=== PATIENT | female | born 1975 | race Caucasian/White ===

== ENCOUNTER 2017-02-16 02:06 | Emergency (ER) | payer MEDICAID ==
[2014-01-10 11:32] VITALS: BMI 42.5
[~2017-02-16 02:06] MED LIST: CELEXA40 MG PO; FERROUS SULFAT325 MG PO; PERCOCET 10/3251 TA1 PO; ZOFRAN8 MG PO
== END 2017-02-16 04:22 | disposition home or self-care (01) ==
LOC: D.ER 02:06
DX: K02.9 Dental caries, unspecified (principal); K08.89 Other specified disorders of teeth and supporting structures; F32.9 Major depressive disorder, single episode, unspecified

== ENCOUNTER 2017-06-18 21:10 | Observation (INO) | payer MEDICAID ==
[~2017-06-18] VITALS: Ht 177.8 cm; Wt 109.5 kg
--- NOTE | ~2017-06-18 | HEMODYNAMI ---
PATIENT:NAS PERES MEDICAL RECORD: [id number] : 73 LOCATION:[address] ADMISSION DATE: 06/18/17 Generatedon:06/20/201715:35 Patient name: NAS PERES Patient #: [id number] SSN: DO B: 1975 Date of study: 06/20/2017 Page: Of Hemodynamic Procedure Report Patient Data Patient Demographics Procedure consent was obtained First Name: NAS Gender: Female Last Name: LARISA : 1975 [facility] Initial: N Age: 42 year(s) Patient #: [id number] Race: Unknown Additional ID: [id number] Contact details [address]: [address] [place] [address] State: [place] City: [place] Zip code: [address] Past Medical History Allergies Allergen Reaction Date Comments Reported Other allergy 06/20/2017 ultram Admission Admission Data Admission Date: 06/18/2017 Admission Time: 23:35 Room #: [facility] Lab Results Lab Result Date: 06/20/2017 Lab Result Time: 0:00 Biochemistry Name Units Result Min Max BUN mg/dl 5 -*(----)-- 7 18 Creatinine mg/dl 0.7 --(*---)-- 0.6 1.3 CBC Name Units Result Min Max Hemoglobin g/dl 9.1 *-(----)-- 13.5 17.5 Procedure Procedure Types Cath Procedure Diagnostic Procedure LHC LH w/Coronaries Miscellaneous Procedures Moderate Sedation up to 15 minutes Peripheral Cath Diagnostic Procedure Cath Peripheral Four Vessel Arteriogram Procedure Description Procedure Date Procedure Date: 06/20/2017 Procedure Start Time: 15:21 Procedure End Time: 15:27 Procedure Staff Name Function Emir Baca MD Performing Physician Annie Palomo RN Nurse Tim Hebert RT Monitor De Francis RT Scrub Procedure Data Cath Procedure Fluoroscopy Diagnostic fluoroscopy Total fluoroscopy Time: 1.5 time: 1.5 min min Diagnostic fluoroscopy Total fluoroscopy dose: 551 dose: 551 mGy mGy Contrast Material Contrast Material Type Amount (ml) Isovue 300 94 Entry Location Entry Primary Successful Side Size Upsize Upsize Entry Closure Succes sful Closure Location (Fr) 1 (Fr) 2 (Fr) Remarks Device Remarks Femoral Right 5 Fr Exoseal artery Diagnostic catheters Device Type Used For End Catheter Placement Cordis 5Fr Pigtail LV Angiography Catheter (MP) Cordis 5Fr JL 4.0 Left Coronary Catheter (MP) Angiography Cordis 5Fr 3DRC Catheter Right Coronary (MP) Angiography Procedure Complications No complications Procedure Medications Medication Administration Route Dosage Oxygen NC 2 l/min Lidocaine 2% added to field 20 Heparin Flush Bag added to field 2 bags (1000units/500ml NS) 0.9% NaCl I.V. 100 ml/hr Versed I.V. 2 mg Fentanyl I.V. 100 mcg Versed I.V. 1 mg Fentanyl I.V. 50 mcg Versed I.V. 1 mg Fentanyl I.V. 50 mcg Hemodynamics Rest HGB: 9.1 (g/dl) Heart Rate: 80 (bpm) Snapshots Pre Cath Intra NCS Post Cath Vital Signs Time Heart Resp SPO2 etCO2 ML1pagc NIBP (mmHg) Rhythm Pain Sedation Rate (ipm) (%) (mmHg) (mmHg) Status Level (bpm) 15:10:18 76 27 100 0 0 146/93(119) NSR 0 (11) 10(A) , No pain 15:14:29 78 17 100 0 0 139/97(114) NSR 0 (11) 10(A) , No pain 15:18:41 82 17 95 0 0 132/88(98) NSR 0 (11) 10(A) , No pain 15:22:51 80 15 96 0 0 120/87(107) NSR 0 (11) 9(A) , No pain 15:26:53 89 16 96 0 0 123/93(108) NSR 0 (11) 10(A) , No pain 15:28:49 81 17 97 0 0 131/87(101) NSR 0 (11) 10(A) , No pain Medications Time Medication Route Dose Verified Delivered Reason Notes Effec tiveness by by 15:15:37 Oxygen NC 2 Emir Buffie used for l/min Phuong Palomo knotting machine operator 15:15:42 Lidocaine 2% added 20ml Emir Buffie used for to vial Phuong Palomo RN procedure field 15:15:47 Heparin Flush added 2 Emir Buffie used for Bag to bags Phuong Palomo RN procedure (1000units/500ml field NS) 15:15:55 0.9% NaCl I.V. 100 Emir Buffie Per ml/hr Phuong Palomo RN physician 15:18:31 Versed I.V. 2 mg Emir Buffie for Phuong Palomo RN sedation 15:18:37 Fentanyl I.V. 100 Emir Buffie for mcg Phuong Palomo RN sedation 15:21:58 Versed I.V. 1 mg Emir Buffie for Phuong Palomo RN sedation 15:22:04 Fentanyl I.V. 50 Emir Buffie for mcg Phuong Palomo RN sedation 15:26:34 Versed I.V. 1 mg Emir Buffie for Phuong Palomo RN sedation 15:26:37 Fentanyl I.V. 50 Emir Buffie for mcg Phuong Palomo RN sedation Procedure Log Time Note 14:29:04 De BAPTISTE(R) sent for patient. Start room use. 14:29:05 Time tracking: Regular hours 14:29:09 Plan of Care:Hemodynamics will remain stable., Cardiac rhythm will remain stable., Comfort level will be maintained., Respiratory function will remain adequate., Patient/ family verbilizes understanding of procedure., Procedure tolerated without complication., Recovers from procedure without complications.. 15:03:11 Patient received from PCU to CCL 1 Alert and oriented. Tansferred to table in Supine position. 15:03:12 Warm blankets applied, and arlene hugger turned on for patient comfort. 15:03:13 Correct patient and procedure confirmed by team. 15:03:15 Signed procedure consent form obtained from patient. 15:03:15 ECG and BP/O2 sat monitors applied to patient. 15:09:06 Vital chart was started 15:13:03 Baseline sample Acquired. 15:13:06 Rhythm: sinus rhythm 15:13:08 Full Disclosure recording started 15:13:50 H&P Date Dictated: 06/20/2017 Within 30 days and on chart.. 15:13:54 H&P Date Dictated: 06/20/2017 Within 30 days and on chart.. 15:13:56 Pre-procedure instructions explained to patient. 15:13:56 Pre-op teaching completed and patient verbalized understanding. 15:13:59 Family in patients room. 15:14:09 Patient NPO since Midnight. 15:14:37 Patient allergic to Other allergyultram 15:14:43 Is the patient allergic to Iodine/contrast media? No. 15:14:47 Is patient on blood thinner?No 15:14:49 Patient diabetic? No. 15:14:50 ----Pre-sedation anethsthesia assessment.---- 15:14:53 Previous problem with sedation/anesthesia? No ? 15:14:55 Snore? Yes 15:14:56 HCG/Urine : not drawn 15:14:57 Sleep apnea? No 15:14:58 pt had abblation and essure for (-)preg 15:14:59 Deviated septum? No 15:15:01 Opens mouth fully? Yes 15:15:02 Sticks out tongue? Yes 15:15:05 Airway obstruction? No ? 15:15:09 Dentures? Yes out 15:15:14 Pre procedure: right dorsailis pedis pulse 1+ Palpable, but thready & weak; easily obliterated 15:15:17 Patient pain scale 0/10 ?. 15:15:23 IV patent on arrival in right hand with 0.9% NaCl at 10ml/hr. 15:15:37 Oxygen 2 l/min NC was administered by Annie Palomo RN; used for procedure; 15:15:42 Lidocaine 2% 20ml vial added to field was administered by Annie Palomo RN; used for procedure; 15:15:47 Heparin Flush Bag (1000units/500ml NS) 2 bags added to field was administered by Annie Palomo RN; used for procedure; 15:15:55 0.9% NaCl 100 ml/hr I.V. was administered by Annie Palomo RN; Per physician; 15:17:36 Lab Result : BUN 5 mg/dl 15:17:36 Lab Result : Creatinine 0.7 mg/dl 15:17:36 Lab Result : Hemoglobin 9.1 g/dl 15:17:40 Lab results completed and on chart. 15:17:44 Right groin area was prepped with chlora-prep and draped in sterile fashion 15:17:46 Alarms reviewed by R. N. 15:17:47 Sharps counted by scrub and verified by R.N. 15:17:48 --------ALL STOP TIME OUT------ 15:17:48 Final Timeout: patient, procedure, and site verified with staff and physician. All members of the team are in agreement. 15:17:52 Right groin site verified by team. 15:17:54 Physical assessment completed. ASA score P 2 - A patient with mild systemic disease as per Emir Baca MD. 15:17:58 Sedation plan: IV Moderate Sedation Versed, Fentanyl 15:18:31 Versed 2 mg I.V. was administered by Annie Palomo RN; for sedation; 15:18:37 Fentanyl 100 mcg I.V. was administered by Annie Palomo RN; for sedation; 15:21:10 Use device set Femoral Dx 15:21:11 Acist Syringe opened to sterile field. 15:21:12 Bag Decanter opened to sterile field. 15:21:12 Medline Cath Pack opened to sterile field. 15:21:12 Terumo 5Fr Heavener Sheath opened to sterile field. 15:21:13 St Kenny 260cm J .035 wire opened to sterile field. 15:21:14 Acist Hand Control opened to sterile field. 15:21:14 Acist Manifold opened to sterile field. 15:21:15 Diagnostic Infinity 5Fr Multipack catheter opened to sterile field. 15:21:15 Tegaderm 4 x 4 opened to sterile field. 15:21:18 Procedure started. 15:21:39 Local anesthetic to right femoral artery with Lidocaine 2% by Emir Baca MD.INITIAL ACCESS ONLY 15:21:45 A 5 Fr sheath was inserted into the Right Femoral artery 15:21:53 A Cordis 5Fr Pigtail Catheter (MP) was advanced over the wire and used for LV Angiography. 15::58 Versed 1 mg I.V. was administered by Annie Palomo RN; for sedation; 15::58 LV angiography performed. 15:22:04 Fentanyl 50 mcg I.V. was administered by Annie Palomo RN; for sedation; 15:22:04 EF : 50 % 15:22:05 Catheter removed. 15:22:10 A Cordis 5Fr JL 4.0 Catheter (MP) was advanced over the wire and used for Left Coronary Angiography. 15:22:13 LCA angiography performed. 15:23:01 Catheter removed. 15:23:17 A Cordis 5Fr 3DRC Catheter (MP) was advanced over the wire and used for Right Coronary Angiography. 15:23:33 RCA angiography performed. 15:24:01 Right carotid angiography performed. 15:24:03 Right subclavian angiography performed 15:24:04 Left carotid angiography performed. 15:24:09 Left subclavian angiography performed 15:25:10 Catheter removed. 15:25:16 Contrast amount:Isovue 300 94ml. 15:25:22 Sheath removed intact; hemostasis achieved with Exoseal to the Right Femoral artery. 15:25:29 Cordis 5Fr Exoseal opened to sterile field. 15:25:32 Procedure ended.(Physican Out) 15::20 Fluoroscopy time 01.50 minutes. 15::24 Flurop Dose total: 551 15::24 Fluoroscopy dose: 551 mGy 15:: Sharps counted by scrub and verified by R.N. 15::27 Insertion/operative site no bleeding no hematoma. 15::29 Post-op/insertion site Right Femoral artery dressed using a 4 x 4 and Tegaderm. 15:26:33 Post right femoral artery:stable 15::34 Versed 1 mg I.V. was administered by Annie aPlomo RN; for sedation; 15::34 Post Procedure Pulses reassessed and unchanged 15:26:36 Post procedure: right dorsailis pedis pulse 1+ Palpable, but thready & weak; easily obliterated. 15:26:37 Fentanyl 50 mcg I.V. was administered by Annie Palomo RN; for sedation; 15::39 Post procedure rhythm: sinus rhythm 15::41 Post procedure instruction explained to patient.Patient verbalizes understanding. 15:26:57 Procedure and supply charges have been captured, reviewed, submitted and are correct. 15:27:01 Procedure Complication : No complications 15::04 Vital chart was stopped 15::04 See physician's report for complete and final results. 15:27:06 Report given to PCU. 15:27:10 Patient transfered to PCU with Bed. 15:27:12 Procedure ended. 15:27:12 Full Disclosure recording stopped 15:27:15 End room use (Document Last) Device Usage Item Name Manufacture Quantity Catalog Hospital Part Current Minimal Lo t# / Number Charge Number Stock Stock Serial# Code Acist Acist 1 52220 [id number] 237791 [id number] 20 Syringe Medical Systems Inc Bag Microtek 1 2002S 868961 62638 889520 5 Decanter Medical Inc. Medline Cardinal 1 [id number] 687274 16294 533710 5 Cath Pack Health Terumo 5Fr Terumo 1 [id number] 184117 690610 188023 [address] St Kenny 1 [id number] 673240 989828 672887 30 260cm J .035 wire Acist Hand Acist 1 21102 252661 904071 365516 5 Control Medical Systems Inc Acist Acist 1 13647 370518 706996 826598 5 Manifold Medical Systems Inc Diagnostic Cardinal 1 [id number] 486446 25611 424112 30 Infinity Health 5Fr Multipack catheter Tegaderm 4 3M 1 1626W 982133 698841 478668 5 x 4 Cordis 5Fr Cardinal 1 794113 5 Pigtail Health Catheter (MP) Cordis 5Fr Cardinal 1 087093 5 JL 4.0 Health Catheter (MP) Cordis 5Fr Cardinal 1 440338 5 3DRC Health Catheter (MP) Cordis 5Fr Cardinal 1 EX500 024492 212757 772381 10 Pubster Signature Audit [place] Stage Time Signature Unsigned Intra-Procedure 06/20/2017 Tim Hebert 3:35:00 PM RT(R) Signatures Monitor : Tim Hebert RT Signature : Date : Time : [facility] [address] [place] [address]
[2017-06-18 22:02] LABS: BASOPHILS 0.3 % (0-2); EOSINOPHILS 2.6 % (0-7); HEMATOCRIT 30.3 % (36.0-48.0); HEMOGLOBIN 9.6 g/dL (12-16); IMMATURE GRANULOCYTES 0.1 % (0-5); LYMPHOCYTES 47.4 % (15-50); MCH 24.1 pg (26.0-34.0); MCHC 31.7 g/dL (31.0-37.0); MCV 76.1 fL (80.0-100.0); MEAN PLATELET VOLUME 9.2 fL (7.4-10.4); MONOCYTES 4.1 % (2-11); NEUTROPHILS 45.5 % (40-80); RBC 3.98 10x6/uL (4.00-5.40); RDW 20.2 % (11.5-14.5)
[2017-06-18 22:07] LABS: ALBUMIN 3.3 g/dL (3.4-5.0); ALKALINE PHOSPHATASE 49 U/L (46-116); ALT (SGPT) 18 U/L (10-68); BILIRUBIN - TOTAL 0.65 mg/dL (0.2-1.3); CALC OSMOLALITY 275 mosm/kg (275-300); CALCIUM 8.2 mg/dL (8.5-10.1); CARBON DIOXIDE 23.2 mmol/L (21.0-32.0); CHLORIDE - SERUM 100 mmol/L (98-107); CREATININE - SERUM 0.6 mg/dL (0.6-1.3); GLUCOSE 99 mg/dL (74-106); POTASSIUM - SERUM 3.2 mmol/L (3.5-5.1); PROTEIN - SERUM 6.8 g/dL (6.4-8.2); SODIUM 139 mmol/L (136-145); UREA NITROGEN 7 mg/dL (7-18); eGFR NON AFRICAN AMERICAN > 90 mL/min (90-120)
[2017-06-18 22:18] LABS: CREATINE KINASE 226 UL (21-215)
[2017-06-18 22:22] LABS: PLATELET COUNT 152 10x3/uL (130-400)
[2017-06-18 22:25] LABS: TROPONIN-I < 0.017 ng/mL (0.000-0.060)
--- NOTE | 2017-06-19 | NUR ---
ADMIT FROM ER. DX CHEST PAIN. ASSESSMENT PER FLOWSHEET. NO CO AT TIME.
[2017-06-19 00:08] VITALS: BP 136/82; Ht 177.8 cm; Wt 109.5 kg
[2017-06-19] MEDS ORDERED: NEURONTIN 300300 MG PO (00:20)
--- NOTE | 2017-06-19 00:34 | NUR ---
CO PAIN 7/10 MORPHINE GIVEN.
[2017-06-19 01:10] LABS: CREATINE KINASE 186 UL (21-215); TROPONIN-I < 0.017 ng/mL (0.000-0.060)
--- NOTE | 2017-06-19 02:15 | NUR ---
C/O NAUSEA PHENERGAN 25MG GIVEN LGM.
--- NOTE | 2017-06-19 03:23 | NUR ---
REQUESTING MORPHINE NOW. STATES HAVING CHEST PAIN.
[2017-06-19 04:20] VITALS: BP 112/69
--- NOTE | 2017-06-19 05:07 | NUR ---
SLEEPING NO DISTRESS NOTED. SR UP X 2.
--- NOTE | 2017-06-19 05:57 | NUR ---
VOICES NO CO AT TIME. AWAKE LAYING ON L SIDE.
[2017-06-19 07:13] LABS: CREATINE KINASE 165 UL (21-215)
[2017-06-19 07:18] LABS: TROPONIN-I < 0.017 ng/mL (0.000-0.060)
--- NOTE | 2017-06-19 07:35 | NUR ---
ASSESSMENT DONE. DENIES NEEDS.
[2017-06-19 08:17] VITALS: BP 123/72
--- NOTE | 2017-06-19 08:40 | NUR ---
RESTS WITH EYES CLOSED. RESP UL ON . CALL LIGHT IN REACH. WILL MONITOR NEEDS.
[2017-06-19 11:22] VITALS: BP 126/64
[2017-06-19 14:18] LABS: CKMB 0.7 U/L (0.0-3.6); CREATINE KINASE 132 UL (21-215)
[2017-06-19 14:19] LABS: TROPONIN-I < 0.017 ng/mL (0.000-0.060)
[2017-06-19 16:03] VITALS: BP 124/78
--- NOTE | 2017-06-19 19:47 | NUR ---
RESUMED CARE OF PT, LYING IN BED RESPIRATIONS EVEN AND UNLABORED ON ROOM AIR. [address] ON TELEMETRY. RIGTH HAND SALINE LOCKED. MORPHINE 5MG IVP FOR PAIN 6:10. CALL LIGHT IN REACH. WILL CONTINUE TO MONITOR. SEE NURSE ASSESSMENT.
[2017-06-19 20:00] VITALS: BP 125/78
[2017-06-20] VITALS: BP 114/75
--- NOTE | 2017-06-20 06:36 | NUR ---
NO CHANGES FROM PREVIOUS ASSESSMENT, CALL LIGHT IN REACH. REMAINS NPO.
[2017-06-20 07:54] VITALS: BP 141/85
[2017-06-20 09:20] LABS: CALC OSMOLALITY 275 mosm/kg (275-300); CALCIUM 8.5 mg/dL (8.5-10.1); CARBON DIOXIDE 28.8 mmol/L (21.0-32.0); CHLORIDE - SERUM 101 mmol/L (98-107); CREATININE - SERUM 0.7 mg/dL (0.6-1.3); GLUCOSE 112 mg/dL (74-106); POTASSIUM - SERUM 3.3 mmol/L (3.5-5.1); SODIUM 139 mmol/L (136-145); eGFR NON AFRICAN AMERICAN > 90 mL/min (90-120)
--- NOTE | 2017-06-20 09:22 | NUR ---
NPO FOR [facility]. CONSENTS SIGNED. WILL CONT. PLAN OF CARE.
[2017-06-20 09:24] LABS: UREA NITROGEN 5 mg/dL (7-18)
[2017-06-20 10:02] LABS: BASOPHILS 0.2 % (0-2); EOSINOPHILS 2.7 % (0-7); HEMATOCRIT 29.5 % (36.0-48.0); HEMOGLOBIN 9.1 g/dL (12-16); IMMATURE GRANULOCYTES 0.6 % (0-5); LYMPHOCYTES 48.4 % (15-50); MCH 24.4 pg (26.0-34.0); MCHC 30.8 g/dL (31.0-37.0); MCV 79.1 fL (80.0-100.0); MEAN PLATELET VOLUME 9.7 fL (7.4-10.4); MONOCYTES 5.4 % (2-11); NEUTROPHILS 42.7 % (40-80); PLATELET COUNT 105 10x3/uL (130-400); RBC 3.73 10x6/uL (4.00-5.40); RDW 20.1 % (11.5-14.5); WBC 5.1 10x3/uL (4.8-10.8)
[2017-06-20 11:37] VITALS: BP 102/66
--- NOTE | 2017-06-20 14:44 | NUR ---
PRE-OPS GIVEN. TO GATE MANAGER BY BED.
--- NOTE | 2017-06-20 15:50 | NUR ---
BACK FROM DEBT COLLECTOR. VS WNL. RIGHT GROIN STABLE WITHOUT BLEEDING OR HEMATOMA NOTED. WILL MONITOR.
--- NOTE | 2017-06-20 17:29 | NUR ---
BED REST UP. GROIN STABLE.
--- NOTE | 2017-06-20 17:57 | NUR ---
IV AND TELEMETRY DCD. DC PLANS GIVEN. UNDERSTANDING VOICED. ESCOTED TO CAR BY W/C.
--- NOTE | 2017-06-21 12:31 | OP ---
PATIENT NAME: NAS PERES MEDICAL RECORD: [id number] :73 LOCATION:D.M2 [address].2122 ADMISSION DATE:06/18/17 SURGEON: MISAEL KEITA MD DATE OF OPERATION: 06/20/2017 PROCEDURES: 1. Left heart catheterization. 2. Selective coronary angiography. 3. Left ventriculogram. 4. Four-vessel carotid and vertebral angiography INDICATION: Syncope. PROCEDURE IN DETAIL: After informed consent was obtained and after detailed explanation of risks, benefits as well as alternative therapies, the patient elected to proceed with angiogram and heart catheterization. The right femoral area was prepped and draped in normal sterile fashion. The right femoral artery was cannulated via modified Seldinger technique with placement of 5-Tajik sheath. All catheters exchanged through this sheath. FINDINGS: There was a subselection of each subclavian as well as the left carotid. RIGHT SIDE: The common internal and external carotids have mild plaquing, none greater than 10%. No flow-limiting stenosis. Vertebral arteries devoid of disease. LEFT SYSTEM: The common internal and external carotids as well as vertebral have no significant disease. Left ventriculogram was performed in standard 30-degree LIM view, reveals good cardiac wall motion throughout all segments. Overall ejection fraction 55%. SELECTIVE CORONARY ANGIOGRAPHY: Left main, left anterior descending, left circumflex and right coronary artery are all smooth-walled vessels with no angiographic evidence of coronary artery disease. OVERALL IMPRESSION: 1. No angiographic evidence of coronary artery disease. 2. Normal left heart pressures. 3. Normal left ventricular systolic function. Chest pain is noncardiac in etiology. The syncope is not due to carotid vascular insufficiency. No further cardiovascular workup needs to be ascertained. TRANSINT:[id number] Voice Confirmation ID: [id number] DOCUMENT ID: [id number] MISAEL KEITA MD at 1231 CC: [id number] DICTATION DATE: 06/20/17 1530 EXTENSION SPECIALIST: 06/20/17 2302 DIS IN 06/20/17 [facility] [address] [id number]
--- NOTE | 2017-06-21 12:31 | DS ---
PATIENT:NAS PERES :73 MEDICAL RECORD: [id number] DISCHARGE SUMMARY ADMISSION DATE: 06/18/17 DISCHARGE DATE: 06/20/17 DISCHARGE DIAGNOSES: 1. Chest pain. 2. Anemia. 3. Gastroesophageal reflux disease. HOSPITAL COURSE: Mrs. Peres presents with chest pain. Cardiac catheterization was normal. She has a significant anemia that is most likely iron deficiency anemia and GERD, ____ having GI blood loss. From a cardiac standpoint, no further workup needs to be ascertained. She should seek attention to her primary care doctor for the anemia and the GERD. TRANSINT:[id number] Voice Confirmation ID: [id number] DOCUMENT ID: [id number] MISAEL KEITA MD at 1231 CC: [id number] DICTATION DATE: 06/20/17 1528 ELECTROMATIC TYPIST: 06/21/17 0413 DIS IN 06/20/17 [id number] [place] [address]
== END 2017-06-20 18:07 | disposition home or self-care (01) ==
LOC: D.ER 21:10 → D.M2 23:35 → OBSVTIME 23:35 → D.M2 23:35
PROVIDERS: Emergency Medicine; ADMIT Internal Medicine Interventional Cardiology
DX: R07.89 Other chest pain (principal); I10 Essential (primary) hypertension; D64.9 Anemia, unspecified; K21.9 Gastro-esophageal reflux disease without esophagitis; E03.9 Hypothyroidism, unspecified; F41.9 Anxiety disorder, unspecified; F32.9 Major depressive disorder, single episode, unspecified; R55 Syncope and collapse

== ENCOUNTER 2017-06-26 19:49 | Emergency (ER) | payer MEDICAID ==
[2017-06-19 00:08] VITALS: BMI 34.6
[~2017-06-26 19:49] MED LIST changes: +NEURONTIN 300300 MG PO
[2017-06-26 20:20] LABS: BASOPHILS 0 % (0-2); EOSINOPHILS 0.5 % (0-7); HEMATOCRIT 28.1 % (36.0-48.0); HEMOGLOBIN 8.8 g/dL (12-16); IMMATURE GRANULOCYTES 0.2 % (0-5); LYMPHOCYTES 37.7 % (15-50); MCH 24.9 pg (26.0-34.0); MCHC 31.3 g/dL (31.0-37.0); MCV 79.4 fL (80.0-100.0); MEAN PLATELET VOLUME 8.3 fL (7.4-10.4); MONOCYTES 10.5 % (2-11); NEUTROPHILS 51.1 % (40-80); RBC 3.54 10x6/uL (4.00-5.40); RDW 22.4 % (11.5-14.5); WBC 4.3 10x3/uL (4.8-10.8)
[2017-06-26 20:22] LABS: PLATELET COUNT 294 10x3/uL (130-400)
[2017-06-26 20:34] LABS: ALBUMIN 2.9 g/dL (3.4-5.0); ALKALINE PHOSPHATASE 41 U/L (46-116); ALT (SGPT) 26 U/L (10-68); BILIRUBIN - TOTAL 0.54 mg/dL (0.2-1.3); CALC OSMOLALITY 288 mosm/kg (275-300); CALCIUM 7.9 mg/dL (8.5-10.1); CARBON DIOXIDE 27.5 mmol/L (21.0-32.0); CHLORIDE - SERUM 107 mmol/L (98-107); CREATININE - SERUM 0.6 mg/dL (0.6-1.3); GLUCOSE 115 mg/dL (74-106); POTASSIUM - SERUM 3.2 mmol/L (3.5-5.1); PROTEIN - SERUM 6.1 g/dL (6.4-8.2); SODIUM 145 mmol/L (136-145); UREA NITROGEN 9 mg/dL (7-18); eGFR NON AFRICAN AMERICAN > 90 mL/min (90-120)
[2017-06-26 20:46] LABS: CHOL - HDL RATIO 1.4 ratio (2.3-4.1); CHOLESTEROL, TOTAL 140 mg/dL (0-200); CKMB 0.6 U/L (0.0-3.6); CREATINE KINASE 121 UL (21-215); HDL CHOLESTEROL 99 mg/dL (32-96); LDL CHOLESTEROL 1 mg/dL (0-100); TRIGLYCERIDE 200 mg/dL (30-200)
[2017-06-26 20:46] LABS: APPEARANCE HAZY (CLEAR); COLOR DK YELLOW (YELLOW); LEUKOCYTE ESTERASE NEGATIVE (NEGATIVE); NITRITE POSITIVE (NEGATIVE); SPECIFIC GRAVITY 1.015 (1.005-1.020)
[2017-06-26 20:47] LABS: TROPONIN-I < 0.017 ng/mL (0.000-0.060)
[2017-06-26 20:47] LABS: BILIRUBIN NEGATIVE (NEGATIVE); GLUCOSE NEGATIVE (NEGATIVE); KETONE NEGATIVE (NEGATIVE); PROTEIN TRACE mg/dL (NEGATIVE); UROBILINOGEN NORMAL (NORMAL)
[2017-06-26 20:49] LABS: BACTERIA MODERATE /hpf (NONE SEEN)
[2017-06-26 20:50] LABS: EPITHELIAL CELLS 0-5 /hpf (0-5); RED CELLS - URINE NONE SEEN /hpf (0-5); WHITE CELLS - URINE 0-5 /hpf (0-5)
[2017-06-26 20:51] LABS: CALCIUM OXALATE CRYSTALS 25-50 /hpf (NONE SEEN)
[2017-06-26 20:52] LABS: UDS - AMPHET NEGATIVE QUAL (NEGATIVE); UDS - BARB NEGATIVE QUAL (NEGATIVE); UDS - BENZO NEGATIVE QUAL (NEGATIVE); UDS - COCAINE NEGATIVE QUAL (NEGATIVE); UDS - METH NEGATIVE QUAL (NEGATIVE); UDS - OPIATE NEGATIVE QUAL (NEGATIVE); UDS - PCP NEGATIVE QUAL (NEGATIVE); UDS - THC NEGATIVE QUAL (NEGATIVE)
== END 2017-06-26 21:20 | disposition home or self-care (01) ==
LOC: D.ER 19:49
PROVIDERS: Family Medicine; Nurse Practitioner Acute Care
DX: N39.0 Urinary tract infection, site not specified (principal); M94.0 Chondrocostal junction syndrome [Tietze]; F32.9 Major depressive disorder, single episode, unspecified

== ENCOUNTER 2017-07-03 22:06 | Inpatient (IN) | payer MEDICAID ==
[~2017-07-03] VITALS: Ht 175.3 cm; Wt 57.7 kg
[2017-07-03 22:54] LABS: BASOPHILS 0.6 % (0-2); EOSINOPHILS 0.1 % (0-7); HEMATOCRIT 34.2 % (36.0-48.0); HEMOGLOBIN 10.5 g/dL (12-16); IMMATURE GRANULOCYTES 0.2 % (0-5); LYMPHOCYTES 9.7 % (15-50); MCH 24.2 pg (26.0-34.0); MCHC 30.7 g/dL (31.0-37.0); MEAN PLATELET VOLUME 8.7 fL (7.4-10.4); MONOCYTES 4.4 % (2-11); PLATELET COUNT 393 10x3/uL (130-400); RBC 4.33 10x6/uL (4.00-5.40); RDW 22.1 % (11.5-14.5); WBC 8.3 10x3/uL (4.8-10.8)
[2017-07-03 23:09] LABS: ALBUMIN 3.4 g/dL (3.4-5.0); ALKALINE PHOSPHATASE 56 U/L (46-116); ALT (SGPT) 28 U/L (10-68); BILIRUBIN - TOTAL 1.38 mg/dL (0.2-1.3); CALC OSMOLALITY 271 mosm/kg (275-300); CALCIUM 7.8 mg/dL (8.5-10.1); CARBON DIOXIDE 23.2 mmol/L (21.0-32.0); CHLORIDE - SERUM 101 mmol/L (98-107); CREATININE - SERUM 0.7 mg/dL (0.6-1.3); GLUCOSE 92 mg/dL (74-106); POTASSIUM - SERUM 3.6 mmol/L (3.5-5.1); PROTEIN - SERUM 6.9 g/dL (6.4-8.2); SODIUM 137 mmol/L (136-145); UREA NITROGEN 8 mg/dL (7-18); eGFR NON AFRICAN AMERICAN > 90 mL/min (90-120)
[2017-07-03 23:23] LABS: APPEARANCE CLOUDY (CLEAR); BACTERIA MANY /hpf (NONE SEEN); BILIRUBIN NEGATIVE (NEGATIVE); COLOR YELLOW (YELLOW); EPITHELIAL CELLS 0-5 /hpf (0-5); GLUCOSE NEGATIVE (NEGATIVE); KETONE LARGE mg/dL (NEGATIVE); LEUKOCYTE ESTERASE 1+ (NEGATIVE); MUCUS >1+ /lpf (NONE SEEN); NITRITE POSITIVE (NEGATIVE); PROTEIN TRACE mg/dL (NEGATIVE); RED CELLS - URINE NONE SEEN /hpf (0-5); UDS - AMPHET NEGATIVE QUAL (NEGATIVE); UDS - BARB NEGATIVE QUAL (NEGATIVE); UDS - BENZO NEGATIVE QUAL (NEGATIVE); UDS - COCAINE NEGATIVE QUAL (NEGATIVE); UDS - METH NEGATIVE QUAL (NEGATIVE); UDS - OPIATE NEGATIVE QUAL (NEGATIVE); UDS - PCP NEGATIVE QUAL (NEGATIVE); UDS - THC NEGATIVE QUAL (NEGATIVE); UROBILINOGEN NORMAL (NORMAL)
[2017-07-03 23:24] LABS: CHOL - HDL RATIO 1.3 ratio (2.3-4.1); CHOLESTEROL, TOTAL 184 mg/dL (0-200); CKMB 0.7 U/L (0.0-3.6); CREATINE KINASE 95 UL (21-215); HDL CHOLESTEROL 140 mg/dL (32-96); LDL CHOLESTEROL 27 mg/dL (0-100); LDL-HDL RATIO 0.2 ratio (1.5-3.5); TRIGLYCERIDE 85 mg/dL (30-200)
[2017-07-03 23:25] LABS: TROPONIN-I < 0.017 ng/mL (0.000-0.060)
--- NOTE | 2017-07-04 01:26 | NUR ---
RECIEVED REPORT FROM TOÑA BONDS.
[2017-07-04 02:26] VITALS: BP 119/76; Ht 175.3 cm; Wt 57.7 kg
--- NOTE | 2017-07-04 02:34 | NUR ---
PATIENT STATED SHE IS HURTING VERY BAD AND NEEDS SOMETHING FOR PAIN. CALLED THE ER, SPOKE WITH TOÑA BONDS ASKED HER IF SHE CAN ASK THE PHYSICIAN FOR SOMETHING FOR PAIN, SHE SAID SHE WILL.
--- NOTE | 2017-07-04 03:37 | NUR ---
GRACIA DAMON SPOKE WITH TOÑA BONDS HE SAID SHE TOLD HIM THE ER DOCTOR SAID HE IS NOT ORDERING PAIN MEDICATION. MARISOL TOLD THE PATIENT. THE PATIENT SAID SHE IS GOING TO TRY TO GO TO SLEEP AND REQUESTED THE LIGHT OFF, HE TURNED OFF THE LIGHT FOR HER.
[2017-07-04 04:00] VITALS: BP 138/83
--- NOTE | 2017-07-04 07:27 | NUR ---
LYING IN BED,WITHOUT DISTRESS.DENIES NEEDS.CALL LIGHT IN REACH
[2017-07-04 08:54] VITALS: BP 132/90
[2017-07-04 09:30] LABS: BASOPHILS 0.4 % (0-2); EOSINOPHILS 0 % (0-7); HEMATOCRIT 30.4 % (36.0-48.0); HEMOGLOBIN 9.5 g/dL (12-16); IMMATURE GRANULOCYTES 0.1 % (0-5); LYMPHOCYTES 9.6 % (15-50); MCH 24.6 pg (26.0-34.0); MCHC 31.3 g/dL (31.0-37.0); MCV 78.8 fL (80.0-100.0); MEAN PLATELET VOLUME 8.7 fL (7.4-10.4); MONOCYTES 5.3 % (2-11); NEUTROPHILS 84.6 % (40-80); PLATELET COUNT 384 10x3/uL (130-400); RBC 3.86 10x6/uL (4.00-5.40); WBC 7.7 10x3/uL (4.8-10.8)
[2017-07-04 10:35] LABS: AMYLASE - SERUM 49 U/L (25-115); LIPASE 374 U/L (73-393)
[2017-07-04 13:03] VITALS: BP 133/90
[2017-07-04 15:51] LABS: CKMB 1.3 U/L (0.0-3.6); CREATINE KINASE 137 UL (21-215)
[2017-07-04 15:58] LABS: TROPONIN-I < 0.017 ng/mL (0.000-0.060)
[2017-07-04 19:54] LABS: CKMB 1.2 U/L (0.0-3.6); CREATINE KINASE 139 UL (21-215)
[2017-07-04 20:00] VITALS: BP 129/70
[2017-07-04 20:00] LABS: TROPONIN-I < 0.017 ng/mL (0.000-0.060)
[2017-07-04 20:28] LABS: HEMATOCRIT 29.6 % (36.0-48.0); HEMOGLOBIN 9.2 g/dL (12-16)
[2017-07-05] VITALS (7 sets, daily range): BP systolic 116–140; BP diastolic 74–87
--- NOTE | 2017-07-05 01:09 | NUR ---
PATIENT WAS ASLEEP WHEN I ENTERED HER ROOM TO GIVE HER THE PROTONIX, AND THE RN RECRUITMENT CAME IN TO DO HER V/S. PATIENT WOKE UP. PATIENT ASKED "WHEN CAN I HAVE MY NEXT MEDICINE TO HELP ME SLEEP?" I STATED "I DO NOT HAVE AN ORDER FOR MEDICATION TO HELP YOU SLEEP. I HAVE AN ORDER FOR ATIVAN TO HELP WITH PREVENTING DT'S AND AN ORDER FOR MORPHINE FOR PAIN. I KNOW IT MAKES YOU SLEEPY BUT THAT IS NOT THE INTENDED PURPOSE OF GIVING YOU THE MEDICATION." SHE STATED "I WAS SHAKING REALLY BAD EARLIER AND I AM NOT NOW THAT MEDICINE IS REALLY HELPING AND IT IS HELPING ME TO GET SOME SLEEP." I STATED "I KNOW YOU ARE WANTING TO GET SOME SLEEP BECAUSE YOU HAVE NOT HAD MUCH REST THE PAST FEW DAYS BUT I AM NOT COMFORTABLE GIVING YOU ANY MORE ATIVAN AT THIS TIME. YOU ARE NOT HAVING ANY TREMORS OR ANYTHING RIGHT NOW, YOU ARE REALLY GROGGY. I DO NOT WANT TO OVER SEDATE YOU. IF YOU GET OVER SEDATED IT CAN MAKE YOU STOP BREATHING." SHE STATED "AT THIS POINT I AM NOT GOING TO STOP BREATHING BUT WHATEVER, I WILL TRY TO GO BACK TO SLEEP."
[2017-07-05 02:11] LABS: CKMB 0.7 U/L (0.0-3.6); CREATINE KINASE 103 UL (21-215)
[2017-07-05 02:12] LABS: TROPONIN-I < 0.017 ng/mL (0.000-0.060)
--- NOTE | 2017-07-05 02:35 | NUR ---
PATIENT PUSHED CALL LIGHT. ANSWERED CALL LIGHT. PATIENT'S MECHANICAL SYSTEMS ENGINEER IS ON THE BEDSIDE TABLE. PATIENT STATED "I CANNOT DEAL WITH THAT THING RIGHT NOW. IT IS GETTING ALL TWISTED UP. AND MY CHEST AND MY FACE AND MY ARM IS HURTING AGAIN. I WAS WONDERING WHAT I CAN GET?" PATIENT IS HAVING TREMORS. ADMINISTERED ATIVAN.
[2017-07-05 05:29] LABS: BASOPHILS 0.2 % (0-2); HEMATOCRIT 26.4 % (36.0-48.0); HEMOGLOBIN 8.1 g/dL (12-16); IMMATURE GRANULOCYTES 0.2 % (0-5); LYMPHOCYTES 31.6 % (15-50); MCH 24.3 pg (26.0-34.0); MCHC 30.7 g/dL (31.0-37.0); MCV 79.3 fL (80.0-100.0); MEAN PLATELET VOLUME 8.7 fL (7.4-10.4); RBC 3.33 10x6/uL (4.00-5.40); RDW 21.6 % (11.5-14.5)
[2017-07-05 05:30] LABS: PLATELET COUNT 265 10x3/uL (130-400)
[2017-07-05 05:42] LABS: INR 1.02 (0.85-1.17); PROTIME 13.2 SECONDS (11.6-15.0)
[2017-07-05 05:53] LABS: ALBUMIN 2.9 g/dL (3.4-5.0); ALKALINE PHOSPHATASE 56 U/L (46-116); ALT (SGPT) 20 U/L (10-68); AMYLASE - SERUM 33 U/L (25-115); CALC OSMOLALITY 274 mosm/kg (275-300); CALCIUM 8.1 mg/dL (8.5-10.1); CARBON DIOXIDE 31.4 mmol/L (21.0-32.0); CHLORIDE - SERUM 101 mmol/L (98-107); CREATININE - SERUM 0.7 mg/dL (0.6-1.3); GLUCOSE 101 mg/dL (74-106); LIPASE 296 U/L (73-393); PRE-ALBUMIN 41.7 mg/dL (18.0-35.7); PROTEIN - SERUM 5.6 g/dL (6.4-8.2); SODIUM 139 mmol/L (136-145); UREA NITROGEN 5 mg/dL (7-18); eGFR NON AFRICAN AMERICAN > 90 mL/min (90-120)
--- NOTE | 2017-07-05 07:50 | NUR ---
ASSESSMENT COMPLETE. IV TO L HAND PATENT. NPO FOR EGD TODAY. UP AD DELILAH. METAL RECLAMATION KETTLE TENDER SHOWING SR 75 PER TECH. DENIES ANY NEEDS AT PRESENT.
[2017-07-05 12:34] LABS: HCG URINE NEGATIVE (NEGATIVE)
--- NOTE | 2017-07-05 12:53 | NUR ---
OFF FLOOR TO GI LAB VIA STRETCHER.
[2017-07-05 12:56] LABS: HEMATOCRIT 28.2 % (36.0-48.0); HEMOGLOBIN 8.7 g/dL (12-16)
--- NOTE | 2017-07-05 13:55 | NUR ---
RETURNED TO ROOM FROM GI LAB. VSS. FAMILY AT BEDSIDE.
[2017-07-05 21:50] LABS: HEMOGLOBIN 8.4 g/dL (12-16)
--- NOTE | 2017-07-05 22:50 | NUR ---
PATIENT AMBULATING IN THE GARCÍA.
[2017-07-06] VITALS (10 sets, daily range): BP systolic 99–138; BP diastolic 65–90
--- NOTE | 2017-07-06 03:20 | NUR ---
GAVE MORPHINE 2 MG IVP AND ATIVAN 2 MG IVP PER PT REQUEST FOR PAIN AND ANXIETY, PER PRN ORDERS. WILL MONITOR FOR EFFECTIVENESS. CALL LIGHT WITHIN REACH. FAMILY MEMBER IS AT BEDSIDE.
--- NOTE | 2017-07-06 04:00 | NUR ---
RESTING QUIETLY WITH EYES CLOSED. NO SIGNS OF DISTRESS NOTED.
[2017-07-06 05:20] LABS: BASOPHILS 0.3 % (0-2); EOSINOPHILS 2.3 % (0-7); HEMOGLOBIN 7.7 g/dL (12-16); IMMATURE GRANULOCYTES 0.5 % (0-5); LYMPHOCYTES 30.5 % (15-50); MCH 24.7 pg (26.0-34.0); MCHC 30.8 g/dL (31.0-37.0); MCV 80.1 fL (80.0-100.0); MEAN PLATELET VOLUME 8.9 fL (7.4-10.4); MONOCYTES 7.1 % (2-11); NEUTROPHILS 59.3 % (40-80); RBC 3.12 10x6/uL (4.00-5.40); RDW 21.7 % (11.5-14.5); WBC 3.9 10x3/uL (4.8-10.8)
[2017-07-06 05:24] LABS: PLATELET COUNT 206 10x3/uL (130-400)
[2017-07-06 05:47] LABS: ALBUMIN 2.8 g/dL (3.4-5.0); ALKALINE PHOSPHATASE 51 U/L (46-116); ALT (SGPT) 20 U/L (10-68); AMYLASE - SERUM 32 U/L (25-115); CALC OSMOLALITY 279 mosm/kg (275-300); CALCIUM 8.2 mg/dL (8.5-10.1); CARBON DIOXIDE 30.1 mmol/L (21.0-32.0); CHLORIDE - SERUM 106 mmol/L (98-107); CREATININE - SERUM 0.7 mg/dL (0.6-1.3); GLUCOSE 100 mg/dL (74-106); LIPASE 224 U/L (73-393); POTASSIUM - SERUM 3.2 mmol/L (3.5-5.1); PROTEIN - SERUM 5.5 g/dL (6.4-8.2); SODIUM 142 mmol/L (136-145); eGFR NON AFRICAN AMERICAN > 90 mL/min (90-120)
[2017-07-06 05:48] LABS: UREA NITROGEN 3 mg/dL (7-18)
--- NOTE | 2017-07-06 06:08 | NUR ---
STARTED PRBC. WILL REMAIN WITH PATIENT FOR THE FIRST 15 MINUTES OF THE TRANSFUSION. PATIENT'S BOYFRIEND IS IN ROOM IN RECLINER.
--- NOTE | 2017-07-06 07:50 | NUR ---
ASSESSMENT COMPLETE. IV TO L HAND PATENT. PRBC'S INFUSING AT 125 CC/HR VIA PUMP. COMPOUNDING PHARMACY TECHNICIAN SHOWING SR 85.
[2017-07-06 13:08] LABS: HEMATOCRIT 28.1 % (36.0-48.0); HEMOGLOBIN 8.7 g/dL (12-16)
--- NOTE | 2017-07-06 17:45 | NUR ---
MORPHINE GIVEN SLOW IVP FOR COMPLAINT OF ABDOMINAL PAIN.
--- NOTE | 2017-07-06 19:40 | NUR ---
PATIENT IS SITTING UP IN BED, APPEARS DROWSY. WROTE MY NAME ON THE BOARD TOLD PATIENT "I WILL BE YOUR NURSE." PATIENT STATED "I THOUGHT YOU WERE GOING HOME?" I STATED "I AM W[employer] FARM SUPPORT SPECIALIST, I WAS YOUR NURSE LAST NIGHT. TIEN WAS YOUR NURSE TODAY. SHE IS GOING HOME." SHE STATED "IT IS ALREADY MORNING?" I STATED "NO, IT IS 7:40PM. I AM WIND FARM SUPPORT SPECIALIST." SHE STATED "OH. THEY MADE CHANGES TO MY MEDS TODAY. THE LAST NURSE WAS SUPPOSED TO GO OVER IT WITH ME BUT SHE NEVER DID." I WENT THROUGHT HE MEDICATION CHANGES WITH HER. SHE SAID, IN REGARDS TO THE MORPHINE ORDER, EVERY 6 HOURS NEEDED, "IF IT IS NEEDED, AND I AM HURTING NOW, DOESN'T THAT MEAN I CAN HAVE IT EVERY TIME I AM HURTING? I AM HURTING NOW." EXPLAINED TO HER THAT SHE CANNOT HAVE IT ANY SOONER THEN 6 HOURS, EXPLAINED MULTIPLE TIMES. SHE STATED "WELL WHAT ABOUT SOMETHING TO HELP ME SLEEP, THAT ONE I WAS GETTING THAT I COULD HAVE EVERY 2 HOURS?" I STATED "THE ATIVAN IS DISCONTINUED. YOU DO NOT HAVE ANYTHING TO HELP YOU SLEEP. THE ATIVAN WAS FOR DT'S, A SIDE EFFECT OF IT IS THAT IT MAKES YOU DROWSY BUT THAT IS NOT THE INTENDED PURPOSE." SHE STATED "WELL I AM HURTING. I WISH THEY WOULD GIVE ME SOMETHING TO HELP ME GET COMFORTABLE JUST UNTIL THEY DO THE COLONOSCOPY." OFFERED PATIENT AN ICE PACK, SHE STATED "NO I HAVE ALREADY TRIED ICE AND HEAT, IT DOES NOT WORK." SHE STATED "I DO NOT WANT TO HAVE TO GO THAT LONG WITHOUT PAIN MEDICATION. CAN YOU CALL THE DOCTOR AND ASK IF THEY CAN MAKE IT CLOSER. AND IF I CAN GET THE HEART MONITOR OFF?" I STATED "NO MA'AM. THEY CHANGED THE ORDER FOR THE PAIN MEDICATION TO MAKE IT FURTHER APPART. I AM NOT GOING TO CALL AND ASK IF THEY CAN CHANGE IT BACK. IF THEY WANTED IT CLOSER TOGETHER THEY WOULD NOT HAVE CHANGED IT TO MAKE IT FURTHER APPART. AND THE HEART MONITOR IS ORDERED BY THE PHYSICIAN, YOU WILL HAVE TO TALK WITH HER ABOUT IT TOMORROW WHEN YOU SEE HER. I TOLD YOU LAST NIGHT IF YOU DO NOT WANT TO WEAR IT THEN YOU NEED TO DISCUSS THAT WITH THE DOCTOR WHEN YOU SEE HER TODAY."
[2017-07-06 21:44] LABS: HEMATOCRIT 31.8 % (36.0-48.0); HEMOGLOBIN 9.9 g/dL (12-16)
--- NOTE | 2017-07-06 22:32 | NUR ---
PATIENT REFUSED TO USE THE NYSTATIN POWDER AT THIS TIME. SHE STATED "I AM FINALLY COMFORTABLE. I WILL DO IT LATER." PATIENT ASKED ABOUT PAIN MEDICATION. REMINDER HER WHAT TIME IT IS AVAILBLE, AND REMINDED HER THAT THE TIME IS WROTE ON THE BOARD FOR NEXT AVAILABLE DOSE OF MORPHINE. PATIENT STATED "THERE IS NO WAY IT IS THAT FAR AWAY." PULLED UP THE MAR, TOLD HER THE TIME SHE LAST HAD IT AND COUNTED OUT LOUD TO 6 HOURS, AND REMINDED HER THAT SHE CAN ONLY HAVE IT EVERY 6 HOURS.
[2017-07-07] VITALS (14 sets, daily range): BP systolic 100–181; BP diastolic 71–120
[2017-07-07 05:53] LABS: BASOPHILS 0.2 % (0-2); HEMATOCRIT 26.2 % (36.0-48.0); HEMOGLOBIN 8.2 g/dL (12-16); IMMATURE GRANULOCYTES 0.2 % (0-5); LYMPHOCYTES 43.1 % (15-50); MCH 25.4 pg (26.0-34.0); MCHC 31.3 g/dL (31.0-37.0); MCV 81.1 fL (80.0-100.0); MEAN PLATELET VOLUME 9.2 fL (7.4-10.4); MONOCYTES 7.1 % (2-11); NEUTROPHILS 47.4 % (40-80); RBC 3.23 10x6/uL (4.00-5.40); RDW 21.3 % (11.5-14.5); WBC 4.1 10x3/uL (4.8-10.8)
[2017-07-07 05:59] LABS: PLATELET COUNT 155 10x3/uL (130-400)
[2017-07-07 06:10] LABS: ALBUMIN 2.6 g/dL (3.4-5.0); ALKALINE PHOSPHATASE 45 U/L (46-116); ALT (SGPT) 22 U/L (10-68); AMYLASE - SERUM 24 U/L (25-115); CALC OSMOLALITY 284 mosm/kg (275-300); CALCIUM 8.1 mg/dL (8.5-10.1); CARBON DIOXIDE 30.3 mmol/L (21.0-32.0); CHLORIDE - SERUM 108 mmol/L (98-107); CREATININE - SERUM 0.8 mg/dL (0.6-1.3); GLUCOSE 87 mg/dL (74-106); LIPASE 176 U/L (73-393); POTASSIUM - SERUM 3.4 mmol/L (3.5-5.1); PROTEIN - SERUM 5.2 g/dL (6.4-8.2); SODIUM 145 mmol/L (136-145); UREA NITROGEN 3 mg/dL (7-18); eGFR NON AFRICAN AMERICAN 83 mL/min (90-120)
--- NOTE | 2017-07-07 07:30 | NUR ---
RECIEVED PT DURING WALKING ROUNDS. PT RESTING IN BED WITH COMPLAINT OF PAIN OF A 6 ON A SCALE OF 1-10. PT REQUESTING PAIN MEDICATION AT THIS TIME, INFORMED HER THAT MEDICATION COULD NOT BE GIVEN AT THIS TIME. ASSESSMENT DONE PER FLOWSHEET. BED IN LOW POSITION AND CALL LIGHT WITHIN REACH. WILL CONTINUE TO [facility].
--- NOTE | 2017-07-07 10:05 | NUR ---
IV SITED BY TOÑA ORTIZ TO THE RIGHT FOREARM. 20G FLUSHED WITH 10CC OF NS AND SECURED WITH OP-SITE AND TAPE. PT TOLERATED WELL. BED IN LOW POSITION AND CALL LIGHT WITHIN REACH. WILL CONTINUE TO MONTIOR.
--- NOTE | 2017-07-07 11:05 | NUR ---
Patient Name: NAS GUDINO Admission Status: ER Accout number: [id number] Admission Date: 07-04-2017 : 1975 Admission Diagnosis: Attending: ZA Current LOS: 3 Anticipated DC Date: Planned Disposition: Home Primary Insurance: MEDICAID [place] Discharge Planning Comments: CM met with patient to assess discharge planning/ needs> Patient plans to return home where she lives with her Daughter who is 9. She has a sister (Osmar) who will be the one to take her home when the time comes. Patient stated that she is independent with her care at home and denies any HH or DME. CM will continue to follow and assist as needed. PCP: [facility] Deborah Garrison (sister) [phone] Phylicia Gudino (daughter) [phone] Conciliator: Ilana Rai * Is the patient Alert and Oriented? Yes 0 * How many steps to enter\exit or inside your home? 5 0 * PCP [facility] 0 * [facility]acy [facility] * Preadmission Environment Home with Family 0 * ADLs Independent 0 * Equipment None 0 * List name and contact numbers for known caregivers / representatives who currently or will assist patient after discharge: DEBORAH GARRISON (SISTER) [phone] WHITNEY GUDINO (DAUGHTER) [phone] 0 * Community resources currently utilized None 0 * Additional services required to return to the preadmission environment? No 0 * Can the patient safely return to the preadmission environment? Yes 0 * Has this patient been hospitalized within the prior 30 days at any hospital? Yes 0 Grand Total: 0
--- NOTE | 2017-07-07 13:00 | NUR ---
1 UNIT OF PRBC'S STARTED AT THIS TIME PER ORDER. VERIFIED WITH ADELA ALARCON RN. BLOOD ADMINISTRATION VITALS INITITAED. WILL CONTINUE TO MONITOR.
[2017-07-07 13:02] LABS: HEMATOCRIT 28.6 % (36.0-48.0); HEMOGLOBIN 9.1 g/dL (12-16)
--- NOTE | 2017-07-07 14:20 | NUR ---
CALL PLACED TO [facility] AT 1405 DUE TO PT BP 180/120 DURING BLOOD TRANSFUSION. ORDER RECIEVED TO ADMINISTER APRESOLINE IV, RECHECKED PT BP AT THIS TIME, 155/78 IS PRESSURE THAT WAS RECORDED. WILL CONTINUE TO MONITOR.
--- NOTE | 2017-07-07 16:42 | NUR ---
RECIEVED ORDER FOR LINSINOPRIL 5MG AT THIS TIME AFTER SPEAKING WITH [facility] ABOUT PTS BP OF 170/102 MANUAL. WAS ORDERED TO ADMINISTER LISINOPRIL AND ATIVAN AND TO REDUCE STIMULATION TO PT AT THIS TIME. WILL CONTINUE TO MONITOR.
--- NOTE | 2017-07-07 20:05 | NUR ---
BROUGHT PT DRINK PER HER REQUEST AND ADMINISTERED MEDS PER ORDERS. PT DENIES OTHER NEEDS AT THIS TIME. BED IN LOWEST POSITION AND CALL LIGHT WITHIN REACH. ENCOURAGED THE PT TO CALL IF SHE HAS NEEDS.
[2017-07-08 04:00] VITALS: BP 108/62
[2017-07-08 06:00] LABS: BASOPHILS 0.3 % (0-2); EOSINOPHILS 2.2 % (0-7); HEMATOCRIT 28.5 % (36.0-48.0); IMMATURE GRANULOCYTES 0.3 % (0-5); MCH 25.4 pg (26.0-34.0); MCHC 31.6 g/dL (31.0-37.0); MCV 80.5 fL (80.0-100.0); MEAN PLATELET VOLUME 8.6 fL (7.4-10.4); MONOCYTES 8.4 % (2-11); NEUTROPHILS 51.8 % (40-80); PLATELET COUNT 129 10x3/uL (130-400); RBC 3.54 10x6/uL (4.00-5.40); RDW 22.1 % (11.5-14.5); WBC 3.7 10x3/uL (4.8-10.8)
[2017-07-08 06:25] LABS: ALBUMIN 2.6 g/dL (3.4-5.0); ALKALINE PHOSPHATASE 43 U/L (46-116); ALT (SGPT) 27 U/L (10-68); CALC OSMOLALITY 279 mosm/kg (275-300); CALCIUM 8.2 mg/dL (8.5-10.1); CARBON DIOXIDE 30.1 mmol/L (21.0-32.0); CHLORIDE - SERUM 108 mmol/L (98-107); CREATININE - SERUM 0.7 mg/dL (0.6-1.3); GLUCOSE 87 mg/dL (74-106); POTASSIUM - SERUM 3.8 mmol/L (3.5-5.1); PROTEIN - SERUM 5.5 g/dL (6.4-8.2); SODIUM 143 mmol/L (136-145); eGFR NON AFRICAN AMERICAN > 90 mL/min (90-120)
[2017-07-08 06:30] LABS: UREA NITROGEN 2 mg/dL (7-18)
--- NOTE | 2017-07-08 07:30 | NUR ---
RECIEVED PT DURING WALKING ROUNDS. PT RESTING IN BED WITH COMPLAINTS OF PAIN OF A 6 ON A SCALE OF 1-10, NO MEDICATION TO BE GIVEN AT THIS TIME. ASSESSMENT DONE PER FLOWSHEET. BED IN LOW POSITION AND CALL LIGHT WITHIN REACH. WILL CONTINUE TO MONITOR.
[2017-07-08 09:23] VITALS: BP 122/73
[2017-07-08 12:59] VITALS: BP 139/85
--- NOTE | 2017-07-08 18:31 | NUR ---
IV REMOVED AND PT DISCHARGED VIA WHEELCHAIR TO HOME WITH A FAMILY MEMBER
== END 2017-07-08 18:32 | disposition home or self-care (01) | DRG 392 ==
LOC: D.ER 22:06 → D.MS 07-04 00:50 → OBSVTIME 07-04 00:50 → D.MS 07-04 14:46
PROVIDERS: Anesthesiology; Emergency Medicine; Internal Medicine Gastroenterology; ADMIT Family Medicine
PROC: 0DB68ZX Excision of Stomach, Via Natural or Artificial Opening Endoscopic, Diagnostic (ICD-10-PCS; principal; 2017-07-05 09:54)
PROC: 0DBN8ZZ Excision of Sigmoid Colon, Via Natural or Artificial Opening Endoscopic (ICD-10-PCS; 2017-07-08)
DX: R10.9 Unspecified abdominal pain (principal); N39.0 Urinary tract infection, site not specified; D12.5 Benign neoplasm of sigmoid colon; K64.8 Other hemorrhoids; Z72.89 Other problems related to lifestyle; R20.0 Anesthesia of skin; R07.9 Chest pain, unspecified; K21.9 Gastro-esophageal reflux disease without esophagitis; K20.9 Esophagitis, unspecified; E66.9 Obesity, unspecified; Z68.37 Body mass index [BMI] 37.0-37.9, adult; K76.0 Fatty (change of) liver, not elsewhere classified; D50.9 Iron deficiency anemia, unspecified

== ENCOUNTER 2017-08-01 19:35 | Emergency (ER) | payer MEDICAID ==
[2017-07-04 02:26] VITALS: BMI 37.0
[2017-08-01 20:10] LABS: APPEARANCE CLEAR (CLEAR); BILIRUBIN NEGATIVE (NEGATIVE); COLOR YELLOW (YELLOW); GLUCOSE NEGATIVE (NEGATIVE); KETONE SMALL mg/dL (NEGATIVE); LEUKOCYTE ESTERASE NEGATIVE (NEGATIVE); NITRITE NEGATIVE (NEGATIVE); PROTEIN TRACE mg/dL (NEGATIVE); UROBILINOGEN NORMAL (NORMAL)
[2017-08-01 20:11] LABS: UDS - AMPHET NEGATIVE QUAL (NEGATIVE); UDS - BARB NEGATIVE QUAL (NEGATIVE); UDS - BENZO NEGATIVE QUAL (NEGATIVE); UDS - COCAINE NEGATIVE QUAL (NEGATIVE); UDS - METH NEGATIVE QUAL (NEGATIVE); UDS - OPIATE NEGATIVE QUAL (NEGATIVE); UDS - PCP NEGATIVE QUAL (NEGATIVE); UDS - THC NEGATIVE QUAL (NEGATIVE)
[2017-08-01 20:25] LABS: BASOPHILS 0.1 % (0-2); EOSINOPHILS 0 % (0-7); HEMOGLOBIN 11.6 g/dL (12-16); IMMATURE GRANULOCYTES 0.1 % (0-5); LYMPHOCYTES 14.5 % (15-50); MCH 25.7 pg (26.0-34.0); MCHC 32.2 g/dL (31.0-37.0); MCV 79.8 fL (80.0-100.0); MEAN PLATELET VOLUME 9.5 fL (7.4-10.4); MONOCYTES 5.5 % (2-11); NEUTROPHILS 79.8 % (40-80); RBC 4.51 10x6/uL (4.00-5.40); RDW 22.1 % (11.5-14.5); WBC 6.8 10x3/uL (4.8-10.8)
[2017-08-01 20:27] LABS: PLATELET COUNT 238 10x3/uL (130-400)
[2017-08-01 20:41] LABS: ALKALINE PHOSPHATASE 54 U/L (46-116); ALT (SGPT) 44 U/L (10-68); BILIRUBIN - TOTAL 2.07 mg/dL (0.2-1.3); CALC OSMOLALITY 273 mosm/kg (275-300); CALCIUM 9.4 mg/dL (8.5-10.1); CARBON DIOXIDE 21.5 mmol/L (21.0-32.0); CHLORIDE - SERUM 100 mmol/L (98-107); CREATININE - SERUM 0.8 mg/dL (0.6-1.3); SODIUM 137 mmol/L (136-145); UREA NITROGEN 3 mg/dL (7-18); eGFR NON AFRICAN AMERICAN 83 mL/min (90-120)
[2017-08-01 20:42] LABS: GLUCOSE 149 mg/dL (74-106)
== END 2017-08-02 00:02 | disposition home or self-care (01) ==
LOC: D.ER 19:35
PROVIDERS: Emergency Medicine
DX: Z86.59 Personal history of other mental and behavioral disorders (principal); F10.239 Alcohol dependence with withdrawal, unspecified

== ENCOUNTER 2017-08-09 23:52 | Inpatient (IN) | payer MEDICAID ==
[~2017-08-09] VITALS: Ht 175.3 cm; Wt 111.4 kg
[2017-08-10 03:41] VITALS: Ht 175.3 cm; Wt 111.4 kg
[2017-08-10] MEDS ORDERED: KLONOPIN1 MG PO (06:14)
[2017-08-10] MEDS ORDERED: CYCLOBENZAPRINE10 MG PO (06:15)
[2017-08-10] MEDS ORDERED: VITAMIN B-1000 MCG/M IM (06:16)
[2017-08-10] MEDS ORDERED: HYDROCODONE-APA1 TAB PO (06:18)
[2017-08-12] MEDS ORDERED: VITAMIN B-1100 M1 PO (11:50)
[2017-08-12] MEDS ORDERED: LIBRIUM25 MG PO (11:50)
[2017-08-12] MEDS ORDERED: FOLIC ACID1 MG PO (11:51)
[2017-08-12] MEDS ORDERED: MEDROL DOSE PACK4 MG PO (11:58)
[2017-08-12 12:56] VITALS: BP 95/65
== END 2017-08-12 14:42 | disposition home or self-care (01) | DRG 897 ==
LOC: D.ER 23:52 → D.MS 08-10 02:38 → OBSVTIME 08-10 02:38 → D.MS 08-11 15:39
PROVIDERS: ADMIT Family Medicine Adult Medicine
DX: F10.239 Alcohol dependence with withdrawal, unspecified (principal); D64.9 Anemia, unspecified; E86.0 Dehydration; E87.6 Hypokalemia; I10 Essential (primary) hypertension; E03.9 Hypothyroidism, unspecified; F41.8 Other specified anxiety disorders

== ENCOUNTER 2017-09-01 02:18 | Emergency (ER) | payer MEDICAID ==
[2017-08-10 03:41] VITALS: BMI 36.2
[~2017-09-01 02:18] MED LIST changes: +CYCLOBENZAPRINE10 MG PO; +FOLIC ACID1 MG PO; +HYDROCODONE-APA1 TAB PO; +KLONOPIN1 MG PO; +LIBRIUM25 MG PO; +MEDROL DOSE PACK4 MG PO; +VITAMIN B-1000 MCG/M IM; +VITAMIN B-1100 M1 PO
== END 2017-09-01 03:31 | disposition home or self-care (01) ==
LOC: D.ER 02:18
DX: R19.5 Other fecal abnormalities (principal); F10.239 Alcohol dependence with withdrawal, unspecified

== ENCOUNTER 2017-09-01 09:33 | Emergency (ER) | payer MEDICAID ==
[2017-08-10 03:41] VITALS: BMI 36.2
[2017-09-01 10:26] LABS: BASOPHILS 0.3 % (0-2); EOSINOPHILS 0.1 % (0-7); HEMATOCRIT 35.2 % (36.0-48.0); HEMOGLOBIN 11.2 g/dL (12-16); IMMATURE GRANULOCYTES 0.3 % (0-5); LYMPHOCYTES 20.8 % (15-50); MCH 26.8 pg (26.0-34.0); MCHC 31.8 g/dL (31.0-37.0); MCV 84.2 fL (80.0-100.0); MEAN PLATELET VOLUME 9.6 fL (7.4-10.4); MONOCYTES 7.5 % (2-11); RBC 4.18 10x6/uL (4.00-5.40); RDW 22.5 % (11.5-14.5); WBC 10.8 10x3/uL (4.8-10.8)
[2017-09-01 10:27] LABS: PLATELET COUNT 401 10x3/uL (130-400)
[2017-09-01 10:35] LABS: UDS - AMPHET NEGATIVE QUAL (NEGATIVE); UDS - BARB NEGATIVE QUAL (NEGATIVE); UDS - BENZO POSITIVE QUAL (NEGATIVE); UDS - COCAINE NEGATIVE QUAL (NEGATIVE); UDS - OPIATE NEGATIVE QUAL (NEGATIVE); UDS - PCP NEGATIVE QUAL (NEGATIVE); UDS - THC NEGATIVE QUAL (NEGATIVE)
[2017-09-01 10:37] LABS: INR 0.95 (0.85-1.17); PROTIME 12.5 SECONDS (11.6-15.0)
[2017-09-01 10:38] LABS: APPEARANCE HAZY (CLEAR); BILIRUBIN NEGATIVE (NEGATIVE); COLOR YELLOW (YELLOW); GLUCOSE NEGATIVE (NEGATIVE); KETONE NEGATIVE (NEGATIVE); NITRITE POSITIVE (NEGATIVE); PROTEIN NEGATIVE (NEGATIVE); SPECIFIC GRAVITY 1.015 (1.005-1.020); UROBILINOGEN NORMAL (NORMAL)
[2017-09-01 10:40] LABS: BACTERIA MANY /hpf (NONE SEEN); RED CELLS - URINE OCC /hpf (0-5)
[2017-09-01 10:46] LABS: ALBUMIN 3.5 g/dL (3.4-5.0); ALKALINE PHOSPHATASE 71 U/L (46-116); ALT (SGPT) 64 U/L (10-68); BILIRUBIN - TOTAL 0.93 mg/dL (0.2-1.3); CALC OSMOLALITY 274 mosm/kg (275-300); CALCIUM 8.7 mg/dL (8.5-10.1); CARBON DIOXIDE 23.3 mmol/L (21.0-32.0); CHLORIDE - SERUM 102 mmol/L (98-107); CREATININE - SERUM 0.7 mg/dL (0.6-1.3); GLUCOSE 105 mg/dL (74-106); MAGNESIUM - SERUM 1.9 mg/dL (1.8-2.4); POTASSIUM - SERUM 3.4 mmol/L (3.5-5.1); PROTEIN - SERUM 7.4 g/dL (6.4-8.2); SODIUM 139 mmol/L (136-145); UREA NITROGEN 4 mg/dL (7-18); eGFR NON AFRICAN AMERICAN > 90 mL/min (90-120)
== END 2017-09-01 14:24 | disposition home or self-care (01) ==
LOC: D.ER 09:33
PROVIDERS: Emergency Medicine; Nurse Practitioner Acute Care
DX: F10.10 Alcohol abuse, uncomplicated (principal)

== ENCOUNTER 2018-04-12 11:50 | Emergency (ER) | payer MEDICAID ==
[2017-08-10 03:41] VITALS: BMI 36.2
== END 2018-04-12 14:33 | disposition home or self-care (01) ==
LOC: D.ER 11:50
DX: S16.1XXA Strain of muscle, fascia and tendon at neck level, initial encounter (principal); V43.52XA Car driver injured in collision with other type car in traffic accident, initial encounter; Y93.89 Activity, other specified; Y92.410 Unspecified street and highway as the place of occurrence of the external cause; S39.012A Strain of muscle, fascia and tendon of lower back, initial encounter; S05.02XA Injury of conjunctiva and corneal abrasion without foreign body, left eye, initial encounter; F17.200 Nicotine dependence, unspecified, uncomplicated

== ENCOUNTER → 2019-01-05 15:48 | Outpatient (CLI) | payer MEDICAID ==
[2017-08-10 03:41] VITALS: BMI 36.2
== END | disposition home or self-care (01) ==
LOC: D.CT 15:48
DX: K91.1 Postgastric surgery syndromes (principal)

== ENCOUNTER 2019-03-23 11:50 | Day surgery (SDC) | payer MEDICAID ==
[2019-03-22 12:30] LABS: HEMATOCRIT 38.7 % (36.0-48.0); HEMOGLOBIN 12.7 g/dL (12-16); MCH 28.1 pg (26.0-34.0); MCHC 32.8 g/dL (31.0-37.0); MCV 85.6 fL (80.0-100.0); MEAN PLATELET VOLUME 10.5 fL (7.4-10.4); RBC 4.52 10x6/uL (4.00-5.40); RDW 14.9 % (11.5-14.5); WBC 7.2 10x3/uL (4.8-10.8)
[~2019-03-23] VITALS: Ht 175.3 cm; Wt 139.7 kg
[~2019-03-23 11:50] MED LIST changes: +HYDROCODON-ACE1 EAC7 PO; +ZANAFLEX4 MG PO
[2019-03-23 12:59] VITALS: BP 154/90; Ht 175.3 cm; Wt 139.7 kg
[2019-03-23] MEDS ORDERED: PERCOCET 10-321 EAC1 PO (18:52)
--- NOTE | 2019-03-23 20:10 | OP ---
PATIENT NAME: NAS GUDINO MEDICAL RECORD: [id number] :[birth year] LOCATION:[facility] ADMISSION DATE: SURGEON: LOUIE FUENTES DO DATE OF OPERATION: 03/23/2019 PROCEDURE PERFORMED: Right middle finger trigger release or A1 chavez release. PREOPERATIVE DIAGNOSIS: Right middle finger trigger finger. POSTOPERATIVE DIAGNOSIS: Right middle finger trigger finger. INDICATIONS: Ms. Gudino is a 43-year-old female that started having her right middle finger catch and lock on her. She will have to unlock it in the morning. She came to my office and got an injection a couple of weeks ago. This did not help her and she wanted something done. She was tired of it catching and locking and given her pain. I informed her we could do the trigger release. She will be at risk for infection, bleeding, damage to nerves, has a crossover there and be very careful with it. The benefit of releasing that is it would not catch anymore. She signed the consent. SURGEON: Louie Fuentes DO DESCRIPTION OF PROCEDURE: The patient was taken to the operative suite and given 3 grams of Ancef preoperatively. The right upper extremity was prepped and draped in sterile fashion. Time-out was performed. Everyone was in agreement of correct side, site, patient, and procedure. The right upper extremity was then exsanguinated with an Esmarch and tourniquet was inflated to 250 mmHg. It was up for 3 minutes. Incision then began over the crease over the A1 chavez with a #15 blade. Then, blunt dissection was made with Ragnell. The A1 chavez was then exposed and released with scissors completely. The tendon was then pulled out through the incision and the finger was ranged and no popping was noted or catching. The tourniquet was let down at that time for 3 minutes and the site was injected with 0.25% Marcaine with epinephrine, approximately 4 mL. There was very little to no bleeding. The site was then closed with 4-0 nylon in a horizontal mattress fashion. Adaptic, 4 x 4's, and Coban were then placed over the hand and lightly wrapped with Coban. She was awakened and taken to recovery in stable condition. BLOOD LOSS: Minimal. COMPLICATIONS: None. TRANSINT:[id number] Voice Confirmation ID: [id number] DOCUMENT ID: [id number] LOUIE FUENTES DO at 2010 CC: [id number] DICTATION DATE: 03/23/191848 [place] MACHINE: 03/23/192006 [facility] [address] [id number]
== END 2019-03-23 20:30 | disposition home or self-care (01) ==
LOC: D.OPS 11:50 → D.PAN 13:45 → D.OPS 15:00
PROVIDERS: Anesthesiology; ATTEND Orthopaedic Surgery
DX: M65.331 Trigger finger, right middle finger (principal); Z01.812 Encounter for preprocedural laboratory examination